=== PATIENT | male | born 1955 | race Caucasian/White ===

== ENCOUNTER → 2019-06-24 07:10 | Outpatient (CLI) | payer MEDICARE, OTHER, SELFPAY ==
--- NOTE | 2019-06-24 07:23 | MRI_ITS ---
STUDY: MRI CERVICAL SPINE WITHOUT CONTRAST REASON FOR EXAM: Male, 64 years old. RADICULITIS, sharp throbbing constant pain at base of skull x 5 yrs TECHNIQUE: Standardized fat and water weighted pulse sequences were obtained in the sagittal and axial planes. COMPARISON: None FINDINGS: Normal foramen magnum and brainstem-cervical cord junction. Normal craniovertebral junction. Normal anterior atlantoaxial articulation. Normal odontoid process. Normal cervical lordosis. Normal vertebral bodies and posterior osseous elements. C2-3: Normal endplates. Normal disc height, signal and morphology. Normal central canal and intervertebral neural foramina. C3-4: Normal endplates. Normal disc height, signal and morphology. Normal central canal and intervertebral neural foramina. C4-5: Moderate right facet hypertrophy with adjacent subchondral edema produces mild right neural foraminal stenosis.. However, no central spinal stenosis. C5-6: Normal endplates. Normal disc height, signal and morphology. Normal central canal and intervertebral neural foramina. C6-7: Normal endplates. Normal disc height, signal and morphology. Normal central canal and intervertebral neural foramina. C7-T1: Normal endplates. Normal disc height, signal and morphology. Normal central canal and intervertebral neural foramina. Normal cervical cord. Normal visualized soft tissue structures. MRI/Spine Cervical (Routine) IMPRESSION: Moderate facet hypertrophy at C4/C5 produces mild right neural foraminal stenosis but no central spinal stenosis. Electronically Signed: Jaspreet Laboy MD at 8:16 EST Tel , Service support ,
== END ==
PROVIDERS: Family Provider Family Medicine; PCP Family Medicine
DX: M54.12 Radiculopathy, cervical region (principal)
CPT/HCPCS: 72141

== ENCOUNTER 2021-07-10 14:45 | Outpatient (RCR) | payer SELFPAY | END 2021-07-10 19:00 | disposition home or self-care (01) | LOC: MASS 14:45 | PROVIDERS: PCP Family Medicine | DX: R69 Illness, unspecified (principal) ==

== ENCOUNTER → 2021-11-29 | Outpatient (CLI) | payer MEDICARE, OTHER, SELFPAY ==
--- NOTE | 2021-11-29 11:50 | CT_ITS ---
STUDY: CT ABDOMEN AND PELVIS WITH CONTRAST REASON FOR EXAM: Male, 66 years old. Left inguinal hernia RADIATION DOSAGE (If Supplied By Facility): CTDIvol = ( 16.34 ) mGy, DLP = ( 849.30 ) mGycm TECHNIQUE: Transaxial images were obtained from the dome of the diaphragm to the symphysis pubis without oral contrast. IV 100mL Isovue-300 was administered. Sagittal and coronal images were reconstructed. Individualized dose optimization techniques were used for this CT. COMPARISON: None. FINDINGS: Mild degree of dependent bibasilar atelectasis. The visualized portions of the heart are within normal limits. Normal liver. Normal gallbladder and extrahepatic biliary system. Normal spleen. Normal pancreas. Normal bilateral adrenal glands. Normal right kidney. Normal left kidney. There is a small hiatal hernia. Normal small intestine. There are scattered colonic diverticula consistent with diverticulosis. The appendix is visualized and appears normal. There is diffuse atherosclerotic calcification of the abdominal aorta and its major visceral branches, without a demonstrated aneurysm. Normal inferior vena cava. Normal retroperitoneum. Normal urinary bladder. Small bilateral inguinal hernias containing fat. Disc space narrowing and degeneration at the L5-S1 level. CT/Abdomen/Pelvis W IV Cont ONLY IMPRESSION: Small bilateral inguinal hernias containing fat. Electronically Signed: Leandro Frazier MD at 13:12 EDT ,
[2021-11-29 12:25] LABS: CREATININE FINGERSTICK < 0.9 mg/dL (0.70-1.30); EGFR FINGERSTICK > 60.0000 mL/min (>60)
== END | disposition home or self-care (01) ==
LOC: CT 11:47
PROVIDERS: PCP Family Medicine; Referring Provider Surgery; Visit Provider Surgery
DX: K40.20 Bilateral inguinal hernia, without obstruction or gangrene, not specified as recurrent (principal)
CPT/HCPCS: 74177; Q9967

== ENCOUNTER 2021-12-19 05:42 | Day surgery (SDC) | payer MEDICARE, OTHER, SELFPAY ==
--- NOTE | 2021-11-29 11:50 | EKG12_ITS ---
Test Reason : PREOP Blood Pressure : / mmHG Vent. Rate : 070 BPM Atrial Rate : 070 BPM P-R Int : 130 ms QRS Dur : 078 ms QT Int : 396 ms P-R-T Axes : 059 071 071 degrees QTc Int : 427 ms Normal sinus rhythm Normal ECG Confirmed by JORDI SHEEHAN, SYDNEY ([id number]), editor map PRATIK JI ([id number]) on 11/29/2021 12:45:39 PM Referred By: Elroy Amezquita Confirmed By:SYDNEY BACON MD
[2021-11-29 11:58] LABS: Hematocrit 42.7 % (40-54); Hemoglobin 15.2 g/dL (13.0-16.5); Mean Corp Hgb Conc 35.6 g/dL (32-36); Mean Corpuscular Hgb 32.2 pg (27.0-32.0); Mean Corpuscular Volume 90.5 fL (80-94); Mean Platelet Vol. 10.4 fl (6.2-12.0); Platelet Count 256 K/mm3 (150-450); RBC Distribution Width CV 11.8 % (11.6-14.6); RBC Distribution Width SD 38.7 fl (35.1-43.9); Red Blood Count 4.72 M/mm3 (4.6-6.2); White Blood Count 8.4 K/mm3 (4.4-11.0)
[2021-11-29 12:09] LABS: Anion Gap 4 (5-15); BUN 19 mg/dL (7-18); Calcium,Total 9.2 mg/dL (8.5-10.1); Chloride 107 mmol/L (98-107); Creatinine, Serum 1.12 mg/dL (0.70-1.30); EST Glomerular Filtration Rate 69 mL/min (>60); Est Glom Filt Rate - Afr Amer 84 mL/min (>60); Glucose 153 mg/dL (74-106); Potassium 4.2 mmol/L (3.5-5.1); Sodium Level 139 mmol/L (136-145)
[2021-11-29 12:11] LABS: Partial Thromboplast Time 29.3 Seconds (24.1-36.2); Prothrombin Time (Protime)PT. 13.2 SECONDS (11.7-14.9)
[2021-12-06 12:21] VITALS: BMI 24.6
[2021-12-06] MEDS: Celecoxib 200 MG Capsule 400 MG PO (13:46)
[2021-12-19] VITALS (10 sets, daily range): BP systolic 107–157; BP diastolic 56–89; PULSE 65–92; RESP 16–18; TEMP 36.6–37.2; O2SAT 90–99; BMI 25.7
--- NOTE | 2021-12-19 | LIP_PTH ---
PATIENT: ALIVIA ASHLEY LOC: [facility] [place] U#:[id number] AGE/SX: 66/M ROOM: RE12/19/[address]: Dr. Elroy Amezquita MD : 1955 BED: DIS: 12/19/2021 SPEC #: [id number] RECD: 12/19/21 13:08 STATUS: RANJAN KATHLEEN #: [id number] SHARAD: 12/19/21 00:[address]: Elroy Amezquita DEPT: SURGICAL PATHOLOGY RECD BY: Cristino Poe ENTERED: 12/19/21 13:09 SP TYPE: LIPOMA OTHR DR: Dr. Laz Rocha MD Tissues: A - Soft tissues, NOS B - Soft tissues, NOS Procedures: Surgery Specimen Level III Comments: @ Specimen number changed from [id number] to [id number] @ on 12/19/21 at 1500 by RGOOD. HEADER OPERATION: Robotic assisted laparoscopic inguinal hernia repair with mesh PRE-OP DIAGNOSIS: Inguinal hernia of left side TISSUE SUBMITTED: A ? Lipoma of cord, left, B - Lipoma of cord, right MICROSCOPIC DIAGNOSIS A. Lipoma of cord, left, excision: Fragments of mature adipose tissue, consistent with lipoma. B. Lipoma of cord, right excision: A piece of mature adipose tissue, consistent with lipoma. JONATHON:yuliana 12/20/2021 MICROSCOPIC DESCRIPTION Slides are reviewed. GROSS DESCRIPTION A - Received in fixative is one container labeled with the patient's name and designated lipoma of cord left. The specimen consists of multiple irregular fragments of adipose tissue that in aggregate measure 2.5 x 2 x 0.4 cm. The entire specimen is submitted in one cassette. B - Received in fixative is one container labeled with the patient's name and designated lipoma of cord right. The specimen consists of an irregular piece of yellow adipose tissue measuring 5.5 x 2.5 x 0.5 cm. Sections reveal yellow adipose cut surfaces without area of hemorrhage, necrosis or cystic degeneration. Hansard Reporter sections are submitted in one cassette. / JONATHON:yuliana 12/19/2021 TC:1 CPT: 02562 x2
[2021-12-19] MEDS: Lactated Ringers 1,000 ML 15 ML IV ×2 (06:48→12:24)
--- NOTE | 2021-12-19 07:33 | PCM.HP.BLA ---
History and Physical Date of Admission: 12/19/21 Date of Service:? 11/26/21 MR#: [id number] Acct: [id number] Name:ALIVIA BROCK Rep #: [id number] : 1955 ? ? Provider: Dr. Elroy Amezquita MD Age/Sex:? 66/M ? ? Location: [facility] Status: Signed Intake Vital Signs ? 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 tab 11/26/21 [History Confirmed 11/26/21] omeprazole magnesium 20 mg tablet,delayed release 20 mg PO BID 11/26/21 [History Confirmed 11/26/21] PFSH Medical History?(Updated 11/26/21 @ 16:[address] Elroy Amezquita MD) Cervical spondylosis CVA (cerebral vascular accident) Epilepsy ETOH abuse Hyperlipidemia IBS (irritable bowel syndrome) Nicotine dependence Occlusion and stenosis of bilateral carotid arteries PTSD (post-traumatic stress disorder) Substance abuse Surgical History?(Updated 11/26/21 @ 16:[address] Elroy Amezquita MD) History of left-sided carotid endarterectomy History of right knee surgery History of right-sided carotid endarterectomy Family History?(Updated 11/26/21 @ 13:41 by Vika Thursday) Grandmother Colon cancerAunt Diabetes Heart disease Hypertension High cholesterolUncle Heart disease High cholesterol Hypertension DiabetesSister Heart disease High cholesterol Hypertension Diabetes Social History?(Updated 11/26/21 @ 13:42 by Vika Thursday) Smoking Status:? Former smoker Tobacco: How many years used:? 50 alcohol intake:? former details:? for 30 years substance use type:? former substance user Date of last use: marijuana HPI HPI HPI: ALIVIA LAND, is a 66 M who presents to the office today for complaint of a new bulge in the left groin concerning for newly?noted left inguinal hernia.? This finding was first noticed by patient approximately November 15 or .? He states shortly after he noticed a bulge and burning between his pelvic bone and thigh he sought evaluation with his primary care physician Dr. Laz Rocha, who refers him today.? Since first noticing this issue he states the burning has subsided to a numbness.? The lump dissipates when lying flat.? He denies any experience of it becoming incarcerated.? Patient is not able to recall how this occurred.? He relates that he has been doing some home remodeling projects and could have done something during this activity that led to his hernia.? He also reports that he had some constipation going on around the time that he first felt the bulge and suspected this may be part of it.? Significantly, since he first noticed this bulge his bowels have been moving regularly.? As an aside later in the history, Mr. Land reports that after intercourse he has noticed his left testicle retracting back into his upper thigh and gradually it will descend back to its normal position.? He wishes to know if this may be somehow related to his other presentation. Patient has a personal history of smoking.? He states that he quit after 50 years of smoking back in September of this year.? Additional past medical history includes history of bilateral carotid endarterectomies that were performed in [place] after TIA and stroke in 2014 and 2017, respectively.? He is followed by his vascular surgeon in [facility].? He notes his last follow-up visit was a year ago and he was told everything appeared to be in good shape and was given a 2-year follow-up. ROS General General: No weight change, appetite, fatigue, colon cancer, breast cancer or weakness HEENT HEENT: No difficulty swallowing, eye injury, eye surgery, swollen glands or hoarseness Endo Endocrine: No thyroid disease, diabetes mellitus, thyroid cancer, Hair loss, heat intolerance or cold intolerance Skin Skin: No rash or changing moles Musc Musculoskeletal: Yes arthritis; No back problems, rheumatoid arthritis, gout or joint pain Cardio Cardiovascular: No murmur, pacemaker, heart disease, atrial fibrillation, high blood pressure, heart attack, heart stent, palpitations, shortness of breat with exertion or chest pain Psych Psychiatric: No depression, anxiety or hearing voices Resp Respiratory: No shortness of breath, No sleep apnea, No cough, No COPD, No asthma, No emphysema and No wheezing Gastro Gastrointestinal: Yes abdominal pain, No nausea or vomiting, No diarrhea, No constipation, No blood in stool, No acid reflux, No hemorrhoids, No ulcers, No gallbladder problem and No black,tarry stools Additional Details: Very lower left into groin Sherif Hematologic: Yes blood thinners, No blood disorders, No bleeding, No anemia and No blood clots Additional Details: ASA 675mg TID Neuro Neurologic: No system reviewed and no additional complaints, except as documented, No as per HPI, No abnormal gait, No abnormal hearing, No abnormal movements, No abnormal speech, No behavioral changes, No burning sensations, No confusion, No convulsions, No disequilibrium, No dizziness, No localized weakness, No frequent falls, No headache(s), No lack of coordination, No loss of vision, No memory loss, No numbness, No other visual disturbances, No radicular pain, No restless legs, No sensory deficit, No syncope, No tingling, No tremor(s), No weakness and Yes other (TIA 2014, Stroke 2017) Exam Const General: cooperative, healthy appearing, comfortable, no acute distress and well developed Orientation: alert, awake and oriented x3 Resp Effort & Inspection: normal respiratory effort Auscultation: clear to auscultation bilaterally, no rales, no rhonchi and no wheezes Cardio Rate: regular rate Rhythm: regular rhythm Heart Sounds: S1 normal and S2 normal GI Inspection: normal to inspection and non-distended Palpation: soft, hernia (Fat-incarcerated umbilical hernia) indirect inguinal on the left (Tender with palpation-appears to be indirect defect) and umbilical and tender periumbilically Assessment and Plan Assessment and Plan (1) Inguinal hernia of left side without obstruction or gangrene: ?Status:?Acute ?Comment: This is a 66-year-old male who presents with a week and a half of symptoms of left groin discomfort and bulging.? On exam he appears to have a reducible left, indirect inguinal hernia.? He denies noting a clear inciting event that led to the development of his hernia.? Furthermore, he relates a history of testicular retraction that suggest this defect may have been present for longer than the initially reported time.? Given his discomfort, he is eager to have things addressed soon.? Fortunately, he stopped smoking 2 months ago and thereby improved his operative risk.? I have discussed with him the origins of inguinal hernias and how they relate to both our development of as well as our abdominal wall anatomy.? I recommend minimally invasive inguinal hernia repair with mesh.? Given his reports of testicular retraction and somewhat limited umbilical exam, would like to obtain a CT of the abdomen pelvis preoperatively for planning purposes.? Lastly, we will look to obtain records from patient's last carotid surveillance and gain approval for holding his larger aspirin dose. ? ? ? Orders:?Orders: ? Abdomen/Pelvis W IV Cont ONLY Today ?Plan - Dr. Elroy Amezquita MD: ? CT of the abdomen and pelvis with IV contrast ? Follow-up carotid surveillance report ? Robotic left (possible bilateral) inguinal hernia on December 06, 2021 (2) Umbilical hernia without obstruction and without gangrene: ?Status:?Acute ?Comment: Patient with exam evidence of a chronically fat?incarcerated umbilical hernia.? This is tender to the touch.? Total defect size seems to be approximately 1 cm, but exam is limited by patient's discomfort.? We will plan to obtain a CT as above for additional evaluation and preoperative planning purposes. ?Plan - Dr. Elroy Amezquita MD: ? CT of the abdomen and pelvis ? Consider possible concurrent umbilical hernia repair with planned left inguinal hernia repair (3) Status post bilateral carotid endarterectomy: ?Status:?Acute ?Comment: Patient status post bilateral CEA.? According to patient report he had a clear checkup 1 year ago.? I would like to obtain these records to verify as we contemplate a general anesthetic for his upcoming hernia repair. ?Plan - Dr. Elroy Amezquita MD: Obtain outside records from Dr. Girno of [place] [facility] regarding patient's carotid status Pt seen and examined. He confirms that his neck pain is greatly improved and that there have been no clinical changes from an abdominal perspective after he required cancellation on his previously-scheduled repair 12/06/21 due to aspirin use. Will therefore proceed with robot-assisted bilateral inguinal hernia repair.
[2021-12-19] MEDS: Cefazolin 2 GM in 0.9% Normal Saline 100 ML IV (07:35)
[2021-12-19] MEDS: Bupivacaine Mpf 0.5% 30 ML VIAL (10:50)
--- NOTE | 2021-12-19 11:03 | OP.PCM_ITS ---
Report of Operation Date of Procedure: 12/19/21 Pre-Operative Diagnosis: Symptomatic left inguinal hernia with CT evidence of b ilateral inguinal hernias Post-Operative Diagnosis: 1. Left indirect inguinal hernia with cord lipoma 2. Right cord lipoma Surgery/Procedure Performed:: Robot-assisted bilateral inguinal hernia repair with mesh Description of Surgical Findings:: ? Left indirect inguinal hernia with associated cord lipoma ? No clear right inguinal hernia sac but large right cord lipoma present Surgeon: Elroy Amezquita otolaryngologist: Janina Elizabeth Type of Anesthesia: General/Supplemental Anesthesiologist: Rodrigue Mar Specimen's removed: Cord lipomas Drains: NA Estimated Blood Loss (mL): 5 Description of Procedure: After appropriate identification the preoperative holding area the patient was brought to the operating room where he was positioned supine on the operating table. Preoperative antibiotics were completed and the patient was administered a general anesthetic. Patient's abdomen was then prepped and draped in usual sterile fashion. Formal timeout followed to confirm patient and procedure. Procedure was begun with an optical entry facilitated by Veress insufflation at Baker's point. Once pneumoperitoneum reached a set point pressure of 15 mmHg, a left paramedian incision was made and a 8 mm robotic trocar was placed with a careful Optiview technique. Follow-up laparoscopic investigation revealed no inadvertent injury to the viscera below. A second port was placed a hand's breath right of this index port under laparoscopic visualization. Then the Veress needle was withdrawn (after confirming no inadvertent injury from its placement) and a third and final robotic port was placed through this site. Patient was positioned in slight Trendelenburg and the robot was docked in standard fashion. I then performed a ilioinguinal nerve block bilaterally with instillation of 5 mL local anesthetic in the groove just inferior to the anterior superior iliac spine. Robotically a peritoneal flap was created on the left and was bluntly dissected to expose the medial parietal compartment and lateral visceral compartments. Medially I could visualize the pubic tubercle and Roque's ligament while laterally I extended the dissection down to the level of the ASIS. The indirect hernia sac was identified and from the cord structures deeply with selective use of monopolar energy. A medium size cord lipoma was identified and removed with monopolar energy. The peritoneal flap was inspected to ensure that there was no pulling of the cord structures or the viscera deeply over the psoas using the pull test. A Bard 3D max, size large, heavyweight mesh was placed into the abdomen along with suture and this mesh was positioned over the myopectineal orifice before it was tacked medially at the pubic tubercle and laterally superior to the ASIS Horizon with Vicryl. The peritoneal flap was closed in a running fashion using 3-0 V lock suture. There was a small hole in the peritoneum where the hernia sac had been dissected free and this was closed with a running Vicryl stitch. Then attention was turned to the patient's right side where there was evidence of slight dimpling at the internal ring, but no obvious defect was visualized. However, review of the patient's CT imaging performed during his preoperative work-up did confirm the presence of a large cord lipoma at this location so I proceeded with a repair on this side as well. Again, a peritoneal flap was created on this side and dissection was carried down in similar fashion to Roque's ligament medially and laterally over the psoas at the same depth. Manual traction was applied to the cord lipoma and with gentle sweeping and selective cautery it was easily from the underlying cord structures. Once satisfied, a Bard 3D max, size large, heavy weight mesh was placed into the abdomen along with suture. It was positioned within the preperitoneal pocket so that there was good medial and inferior overlap. It was then tacked to the abdominal wall at the pubic tubercle and laterally in a partial-thickness bite of the abdominal wall using a 3-0 Ethibond suture. The peritoneal flap was then closed with a running 3 oh V-Loc suture taking care to conceal the barbs of the suture beneath the peritoneum. With the peritoneal defects closed, sutures were systematically removed from the peritoneum followed by the cord lipoma material, and the pneumoperitoneum was evacuated before removing the trocars. The port sites were closed at the skin with running 4-0 Monocryl in a subcuticular fashion. Steri-Strips and OpSite's were used as dressings. Patient's testicles were returned to the scrotum. Patient was then awoken from anesthetic and transferred to PACU for ongoing recovery. Grafts/Implants Used: Bard 3D max, heavyweight mesh, size large x2 Complications None Procedures Digestive 40xxx-49xxx: 04506 Lap ing hernia repair init
--- NOTE | 2021-12-19 11:04 | DCINST_ITS ---
Discharge Instructions Diet Discharge Diet: No restrictions Activity Discharge Activity: May Not Drive (While taking narcotic pain medication) and May Shower Lifting Restrictions: No lifting greater than 15 pounds for the next 4 weeks Dressing / Incision Call your doctor if your incision/area has: Continuous Slow Oozing, Increased Pain/ Swelling, Increased Redness, Foul Smelling Discharge and Swelling at the incision site Call your doctor if you observe: Fever of 101 or Higher and Inability to urinate Change Dressing in: 2 days (Please leave Steri-Strips intact until they fall off spontaneously or are taken off at your follow-up visit) Remove Dressing in: 2 days Cleanse incision/area with: Soap & Water and Keep Dressing Clean & Dry Additional Dressing/Incision Instructions:: Leave steri strips intact until follow up Follow Up Care Please Follow Up With: Elroy Amezquita MD When: 1 week postop Test Results: Test results from this visit will be discussed in further detail at your follow- up appointment, if applicable. Discharge Plan Admission Primary Reason for Your Visit: Inguinal Hernia Repair Attending Provider: Elroy Amezquita Primary Care Provider: Laz Rocha Instructions Patient Instructions: After Laparoscopic Hernia Repair Discharge Orders/Prescriptions Prescriptions: No Action omeprazole magnesium [Prilosec OTC] 20 mg tablet,delayed release (DR/EC) 20 mg PO BID rosuvastatin 10 MG tablet 10 mg PO DAILY eszopiclone 3 MG tablet 3 mg PO QHS aspirin 81 mg tablet,chewable 845 mg PO TID ferrous sulfate 325 mg (65 mg iron) Tablet 325 mg PO DAILY cholecalciferol (vitamin D3) [Vitamin D3] 25 mcg (1,000 unit) Tablet 25 mcg PO QODAY Centrum Silver Men 300-600-300 mcg Tablet 1 tab PO DAILY oxycodone 5 mg capsule 5 mg PO Q6H PRN (Reason: pain) 14 Days Qty: 30 0RF Referrals / Follow Up: Laz Rocha MD [Primary Care Provider] - Disposition Disposition (needs filled in before D/C Order can be placed): Home, Self Care
[2021-12-19] MEDS: oxyCODONE 5 MG Tablet PO (13:15)
[2021-12-19] MEDS: Tamsulosin HCl 0.4 MG Capsule PO (15:48)
== END 2021-12-19 16:52 | disposition home or self-care (01) ==
LOC: SDC 05:44 → AC 05:44
PROVIDERS: Anesthesiology; PCP Family Medicine; Referring Provider Surgery; Visit Provider Surgery
PROC: (CPT 49650; principal; 2021-12-19 07:10)
DX: K40.90 Unilateral inguinal hernia, without obstruction or gangrene, not specified as recurrent (principal); G40.909 Epilepsy, unspecified, not intractable, without status epilepticus; D17.6 Benign lipomatous neoplasm of spermatic cord; I65.23 Occlusion and stenosis of bilateral carotid arteries; E78.00 Pure hypercholesterolemia, unspecified; M47.22 Other spondylosis with radiculopathy, cervical region; M19.90 Unspecified osteoarthritis, unspecified site; Z79.82 Long term (current) use of aspirin; Z79.899 Other long term (current) drug therapy; Z87.891 Personal history of nicotine dependence; Z86.73 Personal history of transient ischemic attack (TIA), and cerebral infarction without residual deficits
CPT/HCPCS: 49650; 55520; S2900; 36415; 80048; 85027; 85610; 85730; 88304; 93005; J7120; C1781; J2405; J3490

== ENCOUNTER 2021-12-22 07:14 | Emergency (ER) | payer MEDICARE, OTHER, SELFPAY ==
[2021-12-22 07:15] VITALS: BP 142/61; PULSE 81; RESP 18; TEMP 38.6; O2SAT 96; BMI 25.7
--- NOTE | 2021-12-22 07:19 | RAD_ITS ---
EXAM: XR CHEST, 1 VIEW CLINICAL INDICATION: post operative fever TECHNIQUE: Frontal view of the chest. This report was created using [employer] report generation technology. COMPARISON: None. FINDINGS: LUNGS AND PLEURAL SPACES: Unremarkable. No consolidation or edema. No pneumothorax. No effusion. HEART: Unremarkable. Cardiac silhouette not enlarged. MEDIASTINUM: Central airways and mediastinal contour are unremarkable. BONES/JOINTS: Unremarkable. SOFT TISSUES: Unremarkable. RAD/Chest 1 View (Portable) IMPRESSION: No radiographic evidence of acute cardiopulmonary disease. Electronically Signed: Rajinder Jade MD at 8:07 EDT ,
[2021-12-22 07:24] VITALS: BP 142/61; PULSE 81; RESP 18; TEMP 38.6; O2SAT 96
--- NOTE | 2021-12-22 07:26 | EDS_ITS ---
HPI History of Present Illness Chief Complaint: Abd Pain Informant: patient and spouse/S.O. Narrative Narrative: 66-year-old male presenting to the emergency room for the evaluation of fever. Patient is postop day 3 from a left inguinal repair and right inguinal cord lipoma removal. He states that his scrotum is swollen and black. He notes that he woke today shaking and with 105 fever. He took 2 Tylenol. He denies vomiting diarrhea dysuria cough sore throat headache earache rhinorrhea. He notes that his abdomen feels bloated. PFSH PFS Medical History Alcohol use Arthritis Back pain Cardiology follow-up encounter Cervical spondylosis CVA (cerebral vascular accident) Easy bruising Epilepsy ETOH abuse Former smoker Heartburn High cholesterol History of stress test Hyperlipidemia IBS (irritable bowel syndrome) Loss of hearing Low iron Marijuana use Nicotine dependence Occlusion and stenosis of bilateral carotid arteries PTSD (post-traumatic stress disorder) Seizures Shortness of breath on exertion Substance abuse TIA (transient ischemic attack) Wears glasses Home Medications eszopiclone 3 mg tablet 3 mg PO QHS 09/13/16 [History Last Taken Unknown] rosuvastatin 10 mg tablet 10 mg PO DAILY 09/13/16 [History Last Taken Unknown] omeprazole magnesium 20 mg tablet,delayed release (Prilosec OTC) 40 mg PO DAILY 11/26/21 [History Last Taken 12/06/21] tamsulosin 0.4 mg capsule 0.4 mg PO DAILY #7 caps 12/19/21 [Rx Last Taken Unknown] amoxicillin 875 mg-potassium clavulanate 125 mg tablet 875 mg PO Q12H #14 TABLETS 12/22/21 [Rx Last Taken Unknown] celecoxib 200 mg capsule 200 mg PO BID 12/22/21 [History Last Taken Unknown] gabapentin 300 mg capsule 300 mg PO TID 12/22/21 [History Last Taken Unknown] metaxalone 800 mg tablet 800 mg PO TID 12/22/21 [History Last Taken Unknown] oxycodone 5 mg capsule 5 mg PO Q6H PRN PRN Pain 12/22/21 [History Last Taken Unknown] Allergy/AdvReac Type Severity Reaction Status Date / Time No Known Allergies Allergy Verified 12/22/21 07:17 Family History Grandmother Colon cancer Aunt Diabetes Heart disease Hypertension High cholesterol Uncle Heart disease High cholesterol Hypertension Diabetes Sister Heart disease High cholesterol Hypertension Diabetes Surgical History History of left-sided carotid endarterectomy History of right knee surgery History of right-sided carotid endarterectomy Hx of colonoscopy Social History Smoking Status: Former smoker Tobacco: How many years used: 50 alcohol intake: former details: for 30 years substance use type: former substance user Date of last use: marijuana ROS ROS ED Constitutional Constitutional ED: Reports chills and fever(s); Denies weight loss Eyes Eyes: Denies change in vision or diplopia ENT ENT ED: Denies ear pain, rhinorrhea or sore throat Cardiovascular Cardiovascular: Denies chest pain, orthopnea, palpitations or racing heartbeat Respiratory/Chest Respiratory/Chest: Denies cough, dyspnea or orthopnea Gastrointestinal Gastrointestinal: Reports other Details: Abdominal bloating ; Denies abdominal pain, diarrhea, nausea or vomiting Genitourinary Genitourinary ED: Reports other Details: Scrotal swelling and ecchymosis ; Denies dysuria, hematuria or urinary frequency Musculoskeletal Musculoskeletal: Denies arthralgias or myalgias Integumentary Denies abscess or rash Neurologic Neurologic: Denies headache(s) or weakness Psychiatric Psychiatric: Denies anxiety, depression, suicidal ideation or suicidal thoughts Endocrine Endocrinology: Denies polydipsia, polyphagia or polyuria Allergic/Immunologic Allergic/Immunologic ED: Denies mouth swelling, tongue swelling or urticaria EXAM Physical Exam Const Vital Signs: 12/22/21 07:15 12/22/21 07:24 12/22/21 08:05 Temperature 101.4 F H 101.4 F H 99.1 F Temperature Source Temporal Temporal Oral Pulse Rate 81 81 78 Respiratory Rate 18 18 16 Blood Pressure 142/61 H 142/61 H 118/58 L Blood Pressure Mean 88 78 Pulse Ox 96 96 97 Oxygen Delivery Method Room Air Room Air Room Air 12/22/21 09:10 Temperature 98.9 F Temperature Source Oral Pulse Rate 80 Respiratory Rate 18 Blood Pressure 126/66 H Blood Pressure Mean 86 Pulse Ox 96 Oxygen Delivery Method Room Air Positive well nourished and well developed General Appearance ED: well developed HEENT Reports normocephalic, head/scalp atraumatic and moist mucous membranes Eyes PERRL and EOMs intact bilaterally Neck no lymphadenopathy, supple and no JVD Resp normal respiratory effort and clear to auscultation bilaterally Cardio regular rate, regular rhythm and no murmurs GI normal to inspection, nondistended, normoactive bowel sounds and non-tender GI Narrative: Surgical sites on the abdominal wall appear clean dry and intact. Palpation: soft Narrative: The patient has scrotal swelling and purplish to blue ecchymosis. Back/Spine no CVA tenderness and normal ROM Extremity normal to inspection General Extremety ED: Negative for edema General Extremity: Negative for edema Neuro oriented x3 and CN's II-XII intact bilaterally Sensorium / Orientation: alert Motor Exam: strength 5/5 throughout Psych mental status grossly normal Mood & Affect: Negative for depressed or tearful Skin no rashes or lesions noted and no wounds MDM MDM MDM Narrative Medical decision making narrative: Patient's white count is 19.9 with 86.7 neutrophils. CMP shows a glucose of 108. Urinalysis is normal. Rapid COVID is negative. Lactic acid is normal. My interpretation of the chest x-ray is no acute process. CT of the abdomen pelvis was obtained which demonstrates air in the scrotal tissues and in the mons which is consistent with his recent inguinal surgeries. I spoke with Dr. Amezquita who came to the emergency room and evaluated the patient. Patient currently feels good. He has developed no further complaints since has been here he is now afebrile and his vital signs are stable. Marcelle cover for some possible postoperative complications with Augmentin and obtained a COVID PCR. Patient has follow-up in 3 days. Return if worsening Lab Data Attestation: I reviewed the patient's lab results. Labs: Laboratory Results - last 24 hr 12/22/21 12/22/21 12/22/21 07:31 07:31 07:31 WBC 19.9 H RBC 4.33 L Hgb 13.8 Hct 39.7 L MCV 91.7 MCH 31.9 MCHC 34.8 RDW Std Deviation 39.5 RDW Coeff of Bea 11.7 Plt Count 234 MPV 11.2 Immature Gran % (Auto) 0.400 Neut % (Auto) 86.7 H Lymph % (Auto) 7.0 L [place] % (Auto) 4.5 Eos % (Auto) 0.9 Baso % (Auto) 0.5 Absolute Neuts (auto) 17.3 H Absolute Lymphs (auto) 1.40 Nucleated RBC % 0 PT Cancelled INR Cancelled APTT Cancelled Sodium 137 Potassium 4.0 Chloride 102 Carbon Dioxide 28.0 Anion Gap 7 BUN 17 Creatinine 1.11 Estim Creat Clear Calc 63.69 Est GFR (MDRD) Af Amer 85 Est GFR (MDRD) Non-Af 70 BUN/Creatinine Ratio 15.3 Glucose 108 H Lactic Acid Calcium 8.7 Total Bilirubin 0.40 AST 16 ALT 23 Alkaline Phosphatase 75 Total Protein 6.8 Albumin 3.5 Globulin 3.3 Albumin/Globulin Ratio 1.1 Urine Color Urine Clarity Urine pH Ur Specific [place] Urine Protein Urine Glucose (UA) Urine Ketones Urine Occult Blood Urine Nitrite Urine Bilirubin Urine Urobilinogen Ur Leukocyte Esterase Urine RBC Urine WBC Ur Squamous Epith Cells Urine Bacteria Urine Mucus 12/22/21 12/22/21 12/22/21 07:31 08:03 09:25 WBC RBC Hgb Hct MCV MCH MCHC RDW Std Deviation RDW Coeff of Bea Plt Count MPV Immature Gran % (Auto) Neut % (Auto) Lymph % (Auto) [place] % (Auto) Eos % (Auto) Baso % (Auto) Absolute Neuts (auto) Absolute Lymphs (auto) Nucleated RBC % PT 13.2 INR 1.0 APTT 29.3 Sodium Potassium Chloride Carbon Dioxide Anion Gap BUN Creatinine Estim Creat Clear Calc Est GFR (MDRD) Af Amer Est GFR (MDRD) Non-Af BUN/Creatinine Ratio Glucose Lactic Acid 1.9 Calcium Total Bilirubin AST ALT Alkaline Phosphatase Total Protein Albumin Globulin Albumin/Globulin Ratio Urine Color Yellow Urine Clarity Clear Urine pH 6.0 Ur Specific [place] 1.005 Urine Protein Negative Urine Glucose (UA) Normal Urine Ketones Negative Urine Occult Blood Negative Urine Nitrite Negative Urine Bilirubin Negative Urine Urobilinogen Normal Ur Leukocyte Esterase Negative Urine RBC 0 SEEN Urine WBC 0 SEEN Ur Squamous Epith Cells 0 SEEN Urine Bacteria 0 SEEN Urine Mucus 0 SEEN Radiography Diagnostic Testing: Clinical Impression(s) from Imaging Studies Chest X-Ray 12/22/21 07:19 IMPRESSION: No radiographic evidence of acute cardiopulmonary disease. Electronically Signed: Rajinder Jade MD at 8:07 EDT , Abdomen/Pelvis CT 12/22/21 08:02 IMPRESSION: Gas in the soft tissues anterior to the inguinal canals extending down into the scrotum which may be due to previous surgery. This is no surgery this may be due to an infectious etiology such as necrotizing fasciitis. There is no abscess or fluid. Electronically Signed: Rajinder Jade MD at 10:45 EDT , ADDENDUM: 12/22/21 1055 IMPRESSION: Gas in the soft tissues anterior to the inguinal canals extending down into the scrotum which may be due to previous surgery. This is no surgery this may be due to an infectious etiology such as necrotizing fasciitis. There is no abscess or fluid. N.B. : The above Results were Read Back by Rajinder Jade MD to Ron Grant MD, and understanding confirmed on 12/22/2021 10:48:24 (ET). Electronically Signed: Rajinder Jade MD at 10:45 EDT , Discharge Plan Triage Chief Complaint: Abd Pain ED Provider: Ron Grant Dx/Rx/DC Orders Clinical Impression: Postoperative fever, Post-operative pain Instructions: ED FUO Adult Prescriptions: New amoxicillin-pot clavulanate [amoxicillin-pot clavulanate] 875-125 mg tablet 875 mg PO Q12H Qty: 14 0RF No Action omeprazole magnesium [Prilosec OTC] 20 mg tablet,delayed release (DR/EC) 40 mg PO DAILY rosuvastatin 10 MG tablet 10 mg PO DAILY eszopiclone 3 MG tablet 3 mg PO QHS celecoxib 200 mg capsule 200 mg PO BID Label Comments: take 1 capsule by mouth twice a day oxycodone 5 mg capsule 5 mg PO Q6H PRN PRN (Reason: Pain) Label Comments: take 1 capsule by mouth every 6 hours if needed for pain for 2 weeks (TO LAST 14 DAYS) gabapentin 300 mg capsule 300 mg PO TID Label Comments: take 1 to 3 capsules by mouth at bedtime for 2 to 3 days IF MELISSA... (REFER TO PRESCRIPTION NOTES). metaxalone 800 mg tablet 800 mg PO TID Label Comments: take 1 tablet by mouth three times a day tamsulosin 0.4 mg capsule 0.4 mg PO DAILY Qty: 7 0RF Rx Instructions: 7 days, started 12/19/2021 Primary Care Provider: Laz Rocha Referrals: Elroy Amezquita MD [STAFF PHYSICIAN] - Keep Kathia appointment Laz Rocha MD [Primary Care Provider] - Disposition Disposition: Home, Self Care
[2021-12-22 07:44] LABS: Absolute Neutrophil Count 17.3 X10^3/uL (2.0-7.7); Basophil# 0.09 X10^3/uL; Basophil% 0.5 % (0-1); Eosinophil# 0.17 X10^3/uL; Eosinophils% 0.9 % (0-5); Hematocrit 39.7 % (40-54); Hemoglobin 13.8 g/dL (13.0-16.5); Mean Corp Hgb Conc 34.8 g/dL (32-36); Mean Corpuscular Hgb 31.9 pg (27.0-32.0); Mean Corpuscular Volume 91.7 fL (80-94); Mean Platelet Vol. 11.2 fl (6.2-12.0); Monocyte% 4.5 % (0-10); NRBC Flagged by Analyzer 0 % (0-5); Neutrophil # 17.29 X10^3/uL (2.7-7.7); Neutrophil % 86.7 % (47-70); Platelet Count 234 K/mm3 (150-450); RBC Distribution Width CV 11.7 % (11.6-14.6); RBC Distribution Width SD 39.5 fl (35.1-43.9); Red Blood Count 4.33 M/mm3 (4.6-6.2); White Blood Count 19.9 K/mm3 (4.4-11.0)
[2021-12-22 08:00] LABS: ALB/GLOB Ratio 1.1 RATIO (0.9-2.4); AST(SGOT) 16 U/L (15-37); Alanine Aminotransfer ALT/SGPT 23 U/L (16-61); Albumin, Serum 3.5 g/dL (3.2-5.0); Alkaline Phosphatase 75 U/L (45-117); Anion Gap 7 (5-15); BUN 17 mg/dL (7-18); BUN/Creat Ratio 15.3 RATIO (10-20); Calcium,Total 8.7 mg/dL (8.5-10.1); Chloride 102 mmol/L (98-107); Creatinine, Serum 1.11 mg/dL (0.70-1.30); EST Glomerular Filtration Rate 70 mL/min (>60); Est Glom Filt Rate - Afr Amer 85 mL/min (>60); Estimated Creatinine Clearance 63.69 ml/min; Globulin 3.3 g/dL (2.2-4.2); Glucose 108 mg/dL (74-106); Protein, Total 6.8 g/dL (6.4-8.2); Sodium Level 137 mmol/L (136-145)
--- NOTE | 2021-12-22 08:02 | CT_ITS ---
We are attempting to reach an attending provider to discuss findings. An addendum with communication details will be sent when the communication is complete. EXAM: CT ABDOMEN AND PELVIS WITH INTRAVENOUS CONTRAST CLINICAL INDICATION: post operative abdominal pain and fever TECHNIQUE: Helically acquired images were obtained of the abdomen and pelvis with intravenous contrast. This CT exam was performed using one or more of the following dose reduction techniques: automated exposure control, adjustment of the mA and/or kV according to patient size, and/or use of iterative reconstruction technique. This report was created using Real [employer] report [employer] technology. CONTRAST: Oral and amp; IV Gastrografin and amp; 100mL Isovue-300 COMPARISON: 11/29/2021 FINDINGS: LOWER THORAX: Unremarkable. Lung bases are clear. No cardiomegaly. No significant pericardial effusion. ABDOMEN: LIVER: Unremarkable. Homogeneous. No focal mass. GALLBLADDER AND BILE DUCTS: Unremarkable. No calcified gallstones. No gallbladder distention or wall edema. No intra- or extrahepatic biliary ductal dilation. PANCREAS: Unremarkable. No focal cystic or solid mass. SPLEEN: Unremarkable. Normal size without focal cystic or solid mass. ADRENALS: Unremarkable. No nodules. KIDNEYS AND URETERS: Unremarkable. Normal renal size and position. No hydronephrosis. STOMACH AND BOWEL: Unremarkable. No stomach or bowel distention. No focal inflammatory change. PELVIS: APPENDIX: No evidence of acute appendicitis. BLADDER: Unremarkable. REPRODUCTIVE: Unremarkable as visualized. No mass. ABDOMEN and PELVIS: INTRAPERITONEAL SPACE: Unremarkable. No ascites or other fluid collection. No free air. BONES/JOINTS: Unremarkable. No suspicious lytic or blastic abnormality. SOFT TISSUES: There is a small amount of gas in subcutaneous tissues anterior to the inguinal canals extending into the scrotum possibly from previous surgery. There is no fluid or abscess identified. No discrete abdominal or pelvic wall hernia. VASCULATURE: Unremarkable. Abdominal aorta is non-dilated. LYMPH NODES: Unremarkable. No enlarged lymph nodes. CT/Abdomen/Pelvis WITH Contrast IMPRESSION: Gas in the soft tissues anterior to the inguinal canals extending down into the scrotum which may be due to previous surgery. This is no surgery this may be due to an infectious etiology such as necrotizing fasciitis. There is no abscess or fluid. Electronically Signed: Rajinder Jade MD at 10:45 EDT ,
[2021-12-22 08:05] VITALS: BP 118/58; PULSE 78; RESP 16; TEMP 37.3; O2SAT 97
[2021-12-22 08:07] LABS: Lactic Acid 1.9 mmol/L (0.4-1.9)
[2021-12-22 08:26] LABS: Prothrombin Time (Protime)PT. 13.2 SECONDS (11.7-14.9)
[2021-12-22 08:27] LABS: Partial Thromboplast Time 29.3 Seconds (24.1-36.2)
[2021-12-22 09:10] VITALS: BP 126/66; PULSE 80; RESP 18; TEMP 37.2; O2SAT 96
[2021-12-22 09:34] LABS: Bacteria 0 SEEN /hpf (None Seen); Mucous, Urine 0 SEEN /hpf (<or=2+); Red Blood Cells-Urine 0 SEEN /hpf (0-5); Squamous Epithelial Cells - UA 0 SEEN /hpf (0-5); White Blood Cells 0 SEEN /hpf (0-5)
--- NOTE | 2021-12-22 09:46 | NURSING ---
DR QURESHI IN ROOM
[2021-12-22 10:32] LABS: Color, Urine Yellow (Yellow); Glucose, Dipstick Normal (Normal); Ketone-Dipstick Negative (Negative); Leukocyte Esterase-Dipstick Negative /ul (Negative); Nitrite-Dipstick Negative (Negative); Occult Blood-Urine Negative /ul (Negative); Protein-Dipstick Negative (Negative); Specific Gravity, Urine 1.005 (1.002-1.030); Urine Bilirubin Dipstick Negative (Negative); Urine Clarity Clear (Clear); Urine Urobilinogen Normal (Normal)
--- NOTE | 2021-12-22 11:17 | HP.PCM_ITS ---
HPI - General HPI Narrative ALIVIA LAND, is a 66 M who presents to [facility] ER at the behest of his after he awoke this morning with shakes. His also reported to him that when she took his temperature he had a fever of 105 Fahrenheit. ER work-up was notable for a CBC that demonstrated a leukocytosis of over 19,000 and corresponding left shift. Chest x-ray and UA were both notably normal. For his part, Mr. Land reports that he has continued to feel better each day following a robotic assisted bilateral inguinal hernia repair on 12/19/2021 with me. I spoke with him on postoperative day 1 and he had remarked of some discoloration of his penile shaft, but states both the swelling and the discoloration seemed to be clearing. His reports that he had some cough with production of green phlegm immediately after surgery, but Mr. Land states this has been better for several days now. He confirms that he has been moving his bowels and bladder normally since surgery. [facility] Medical History Alcohol use Arthritis Back pain Cardiology follow-up encounter Cervical spondylosis CVA (cerebral vascular accident) Easy bruising Epilepsy ETOH abuse Former smoker Heartburn High cholesterol History of stress test Hyperlipidemia IBS (irritable bowel syndrome) Loss of hearing Low iron Marijuana use Nicotine dependence Occlusion and stenosis of bilateral carotid arteries PTSD (post-traumatic stress disorder) Seizures Shortness of breath on exertion Substance abuse TIA (transient ischemic attack) Wears glasses Home Medications eszopiclone 3 mg tablet 3 mg PO QHS 09/13/16 [History Last Taken Unknown] rosuvastatin 10 mg tablet 10 mg PO DAILY 09/13/16 [History Last Taken Unknown] omeprazole magnesium 20 mg tablet,delayed release (Prilosec OTC) 40 mg PO DAILY 11/26/21 [History Last Taken 12/06/21] tamsulosin 0.4 mg capsule 0.4 mg PO DAILY #7 caps 12/19/21 [Rx Last Taken Unknown] amoxicillin 875 mg-potassium clavulanate 125 mg tablet 875 mg PO Q12H #14 TABLETS 12/22/21 [Rx Last Taken Unknown] celecoxib 200 mg capsule 200 mg PO BID 12/22/21 [History Last Taken Unknown] gabapentin 300 mg capsule 300 mg PO TID 12/22/21 [History Last Taken Unknown] metaxalone 800 mg tablet 800 mg PO TID 12/22/21 [History Last Taken Unknown] oxycodone 5 mg capsule 5 mg PO Q6H PRN PRN Pain 12/22/21 [History Last Taken Unknown] Allergy/AdvReac Type Severity Reaction Status Date / Time No Known Allergies Allergy Verified 12/22/21 07:17 Family History Grandmother Colon cancer Aunt Diabetes Heart disease Hypertension High cholesterol Uncle Heart disease High cholesterol Hypertension Diabetes Sister Heart disease High cholesterol Hypertension Diabetes Surgical History History of left-sided carotid endarterectomy History of right knee surgery History of right-sided carotid endarterectomy Hx of colonoscopy Social History Smoking Status: Former smoker Tobacco: How many years used: 50 alcohol intake: former details: for 30 years substance use type: former substance user Date of last use: marijuana Vital Signs Vital Signs Vital Signs: 12/22/21 07:15 12/22/21 07:24 12/22/21 08:05 Temperature 101.4 F H 101.4 F H 99.1 F Temperature Source Temporal Temporal Oral Pulse Rate 81 81 78 Respiratory Rate 18 18 16 Blood Pressure 142/61 H 142/61 H 118/58 L Blood Pressure Mean 88 78 Pulse Ox 96 96 97 Oxygen Delivery Method Room Air Room Air Room Air 12/22/21 09:10 Temperature 98.9 F Temperature Source Oral Pulse Rate 80 Respiratory Rate 18 Blood Pressure 126/66 H Blood Pressure Mean 86 Pulse Ox 96 Oxygen Delivery Method Room Air Weight Weight: 174 lb Body Mass Index (BMI) 25.7 Physical Exam Const alert, oriented x3 and no apparent distress General Appearance: cooperative Resp normal respiratory effort GI GI Narrative: Mildly distended, operative dressings are in place without drainage to the bandages?these are removed and the Steri-Strips remain intact beneath. There is no periincisional erythema or drainage from these incisions. Patient's abdomen is soft and nontender to palpation. Narrative: Some ecchymosis present along patient's scrotum and penile shaft. Testicles are palpated and are nontender. I do not feel any fluctuance to represent a large hematoma. The tissues are not warm and I do not feel crepitus. Results Lab / Micro Data Result Diagrams: 12/22/21 07:31 12/22/21 07:31 Labs: Laboratory Results - last 24 hr 12/22/21 07:31: WBC 19.9 H, RBC 4.33 L, Hgb 13.8, Hct 39.7 L, MCV 91.7, MCH 31.9, MCHC 34.8, RDW Std Deviation 39.5, RDW Coeff of Bea 11.7, Plt Count 234, MPV 11.2, Immature Gran % (Auto) 0.400, Neut % (Auto) 86.7 H, Lymph % (Auto) 7.0 L, [place] % (Auto) 4.5, Eos % (Auto) 0.9, Baso % (Auto) 0.5, Absolute Neuts (auto) 17.3 H, Absolute Lymphs (auto) 1.40, Nucleated RBC % 0 12/22/21 07:31: PT Cancelled, INR Cancelled, APTT Cancelled 12/22/21 07:31: Sodium 137, Potassium 4.0, Chloride 102, Carbon Dioxide 28.0, Anion Gap 7, BUN 17, Creatinine 1.11, Estim Creat Clear Calc 63.69, Est GFR (MDRD) Af Amer 85, Est GFR (MDRD) Non-Af 70, BUN/Creatinine Ratio 15.3, Glucose 108 H, Calcium 8.7, Total Bilirubin 0.40, AST 16, ALT 23, Alkaline Phosphatase 75, Total Protein 6.8, Albumin 3.5, Globulin 3.3, Albumin/Globulin Ratio 1.1 12/22/21 07:31: Lactic Acid 1.9 12/22/21 08:03: PT 13.2, INR 1.0, APTT 29.3 12/22/21 09:25: Urine Color Yellow, Urine Clarity Clear, Urine pH 6.0, Ur Specific [place] 1.005, Urine Protein Negative, Urine Glucose (UA) Normal, Urine Ketones Negative, Urine Occult Blood Negative, Urine Nitrite Negative, Urine Bilirubin Negative, Urine Urobilinogen Normal, Ur Leukocyte Esterase Negative, Urine RBC 0 SEEN, Urine WBC 0 SEEN, Ur Squamous Epith Cells 0 SEEN, Urine Bacteria 0 SEEN, Urine Mucus 0 SEEN Micro: Microbiology 12/22/21 07:36 Nasal Secretion SARS-CoV-2 & FLU Antigen (Rapid) - Final Radiology Impression Chest X-Ray 12/22/21 07:19 IMPRESSION: No radiographic evidence of acute cardiopulmonary disease. Electronically Signed: Rajinder Jade MD at 8:07 EDT , Abdomen/Pelvis CT 12/22/21 08:02 IMPRESSION: Gas in the soft tissues anterior to the inguinal canals extending down into the scrotum which may be due to previous surgery. This is no surgery this may be due to an infectious etiology such as necrotizing fasciitis. There is no abscess or fluid. Electronically Signed: Rajinder Jade MD at 10:45 EDT , ADDENDUM: 12/22/21 1055 IMPRESSION: Gas in the soft tissues anterior to the inguinal canals extending down into the scrotum which may be due to previous surgery. This is no surgery this may be due to an infectious etiology such as necrotizing fasciitis. There is no abscess or fluid. N.B. : The above Results were Read Back by Rajinder Jade MD to Ron Grant MD, and understanding confirmed on 12/22/2021 10:48:24 (ET). Electronically Signed: Rajinder Jade MD at 10:45 EDT , Assessment & Plan Assessment/Plan (1) Postoperative fever: (2) Status post inguinal herniorrhaphy using synthetic patch: PLAN: Plan Patient is 66-year-old male 3 days status post robotic assisted bilateral inguinal hernia repair with mesh who presents with postoperative fever (measured at 101.4F X 2) in the ER. He also demonstrates a leukocytosis with left shift. However, his chest x-ray is within normal limits, his UA is unremarkable, and he seems to have experienced spontaneous resolution of the only complaint with which he presented?uncontrollable shaking. Furthermore, CT of the abdomen and pelvis was performed and is unremarkable aside from some air tracking along the bilateral inguinal canals which is well explained by his recent operation. Significantly, there is no air or abscess noted around his recently placed mesh. Still, given his other signs of a underlying infection, I have asked emergency medicine to prescribe a limited course of antibiotics to try to minimize Mr. Land risk for any translocation. I have also given him precautions and signs to look for related to Cristino's gangrene?a diagnosis I do not suspect at this time given his reassuring physical exam. Lastly, I have confirmed our previously scheduled follow-up appointment on 12/25/2021. Charges/Coding Visit Charges Inpatient E&M: 82567 Init Hosp L2
== END 2021-12-22 11:20 | disposition home or self-care (01) ==
PROVIDERS: Emergency Provider Emergency Medicine; PCP Family Medicine; Visit Provider Emergency Medicine
DX: R50.82 Postprocedural fever (principal); R10.9 Unspecified abdominal pain; G89.18 Other acute postprocedural pain; E78.00 Pure hypercholesterolemia, unspecified; M19.90 Unspecified osteoarthritis, unspecified site; Z79.899 Other long term (current) drug therapy; Z86.73 Personal history of transient ischemic attack (TIA), and cerebral infarction without residual deficits; Z87.891 Personal history of nicotine dependence
CPT/HCPCS: 71045; 74177; 80053; 81001; 83605; 85025; 85610; 85730; 87040; 87428; 87635; 96374; 99284; Q9967; A4216; U0003; U0005

== ENCOUNTER → 2023-08-11 | Outpatient (CLI) | payer MEDICARE, OTHER, SELFPAY ==
--- NOTE | 2023-08-11 09:46 | CDU_ITS ---
Reason For Study: Carotid stenosis, s/p bilateral CEA Rt. Velocities/BP Lt. Velocities/BP Prox CCA 104.7/16.3 cm/sec. Prox CCA 92.7/12.4 cm/sec. Mid CCA 99.8/16.3 cm/sec. Mid CCA 108/16.8 cm/sec. Dist CCA 79/12.6 cm/sec. Dist CCA 100.3/16.8 cm/sec. Prox ICA 86.4/17 cm/sec. Prox ICA 108.3/24.3 cm/sec. Mid ICA 110.1/27.9 cm/sec. Mid ICA 124.7/38.9 cm/sec. Dist ICA 112/27.9 cm/sec. Dist ICA 104.7/27.9 cm/sec. Rt. ICA/CCA = 1.12. Lt. ICA/CCA = 1.24. Prox ECA 146.7/13.3 cm/sec. Prox ECA 141.2/7.9 cm/sec. Rt. Vert. 50.9/9.1 cm/sec. Lt. Vert. 66.3/11.5 cm/sec. Right Extracranial There is homogeneous, smooth atherosclerotic plaque noted in the right common carotid artery. There is intimal thickening but no significant atherosclerotic plaque noted in the right internal carotid artery. There is intimal thickening but no significant atherosclerotic plaque noted in the right external carotid artery. Antegrade flow is noted in the right vertebral artery. Left Extracranial There is homogeneous, smooth atherosclerotic plaque noted in the left common carotid artery. There is homogeneous, smooth atherosclerotic plaque noted in the left internal carotid artery. There is intimal thickening but no significant atherosclerotic plaque noted in the left external carotid artery. Antegrade flow is noted in the left vertebral artery. Procedure This is a Carotid Duplex examination using B-mode, color flow and specral Doppler. Carotid Duplex [id number]. Exam performed in department. VL/Carotid Duplex Ultrasound Interpretation Summary Mild (<50%) stenosis right extracranial internal carotid. Mild (<50%) stenosis left extracranial internal carotid. Flow within the vertebral arteries is antegrade bilaterally. Ordering Physician: Mark Anthony Giron Referring Physician: Winter Erickson Performed By: Ciera Tafoya RVT and Student
== END | disposition home or self-care (01) ==
LOC: CVS 09:45
PROVIDERS: PCP Internal Medicine; Referring Provider Surgery Vascular Surgery; Visit Provider Surgery Vascular Surgery
DX: I65.23 Occlusion and stenosis of bilateral carotid arteries (principal); F17.210 Nicotine dependence, cigarettes, uncomplicated; Z86.73 Personal history of transient ischemic attack (TIA), and cerebral infarction without residual deficits
CPT/HCPCS: 93880

== ENCOUNTER → 2024-10-07 | Outpatient (CLI) | payer MEDICARE, OTHER, SELFPAY ==
--- NOTE | 2024-10-07 13:59 | CDU_ITS ---
Reason For Study Reason For Study: Carotid stenosis Rt. Velocities/BP Lt. Velocities/BP Prox CCA 83.9/13.5 cm/sec. Prox CCA 79.6/12.6 cm/sec. Mid CCA 93.8/17.9 cm/sec. Mid CCA 92.7/14.6 cm/sec. Dist CCA 81.7/13.5 cm/sec. Dist CCA 75.1/14.6 cm/sec. Prox ICA 70.7/12.4 cm/sec. Prox ICA 99.7/21.2 cm/sec. Mid ICA 66.3/13.5 cm/sec. Mid ICA 112.5/28.5 cm/sec. Dist ICA 88.3/21.2 cm/sec. Dist ICA 94.2/21.2 cm/sec. Rt. ICA/CCA = 0.9. Lt. ICA/CCA = 1.2. Prox ECA 126.6/9.7 cm/sec. Prox ECA 103.4/10.2 cm/sec. Rt. Vert. 49.4/12.6 cm/sec. Lt. Vert. 50.4/10.2 cm/sec. Right Extracranial There is homogeneous, smooth atherosclerotic plaque noted in the right common carotid artery. There is intimal thickening but no significant atherosclerotic plaque noted in the right internal carotid artery. There is intimal thickening but no significant atherosclerotic plaque noted in the right external carotid artery. Antegrade flow is noted in the right vertebral artery. Left Extracranial There is homogeneous, smooth atherosclerotic plaque noted in the left common carotid artery. There is homogeneous, smooth atherosclerotic plaque noted in the left internal carotid artery. There is intimal thickening but no significant atherosclerotic plaque noted in the left external carotid artery. Antegrade flow is noted in the left vertebral artery. Procedure Carotid Duplex [id number]. This is a Carotid Duplex examination using B-mode, color flow and specral Doppler. Exam performed in department. VL/Carotid Duplex Ultrasound Interpretation Summary Mild (<50%) stenosis right extracranial internal carotid. Mild (<50%) stenosis left extracranial internal carotid. Patent and antegrade vertebrals bilaterally. Ordering Physician: Mark Anthony Giron Referring Physician: MD Mark Anthony Giron Performed By: Becka Ewing RVT
== END | disposition home or self-care (01) ==
PROVIDERS: PCP Internal Medicine; Referring Provider Surgery Vascular Surgery; Visit Provider Surgery Vascular Surgery
DX: I65.23 Occlusion and stenosis of bilateral carotid arteries (principal); F17.210 Nicotine dependence, cigarettes, uncomplicated; Z86.73 Personal history of transient ischemic attack (TIA), and cerebral infarction without residual deficits
CPT/HCPCS: 93880